=== PATIENT | female | born 1960 ===

== ENCOUNTER 2020-09-01 13:05 | Outpatient (CLI) | payer BC ==
--- NOTE | 2020-09-01 14:59 | Mammography Report ---
DIGITAL SCREENING MAMMOGRAM WITH CAD, 09/01/2020 CLINICAL INFORMATION / INDICATION: Routine screening mammography. TECHNIQUE: Digital bilateral 2D mammography was obtained in the craniocaudal and mediolateral obliqu e projections. This examination was interpreted with the benefit of Computer-Aided Detection analysis . COMPARISON: 04/06/2017, 01/05/2016 FINDINGS: Breast Density: The breasts are heterogeneously dense, which may obscure small masses. No dominant mass, suspicious calcifications, or architectural distortion in either breast. There are bilateral retropectoral silicone implants. There are a few moderately prominent left axillary lymph nodes, representing a new finding. IMPRESSION: 1. New moderately prominent left axillary lymph nodes which will require additional evaluation with u ltrasound and possible additional mammographic views. Follow up recommendation: Ultrasound BI-RADS Category 0: Incomplete. Needs additional imaging evaluation and/or prior mammograms for cameron rison. A "normal" or negative report should not discourage follow up or biopsy of a clinically significant f inding. A written summary of these findings will be mailed to the patient. The patient will be entered into a mammography reporting system which will generate a reminder letter for the patient's next appointmen t at the appropriate interval. [employer] recommends yearly mammograms starting at age 40 and continuing as l jennifer as a woman is in good health. Breast MRI is recommended for women with an approximate 20-25% or greater lifetime risk of breast cancer, including women with a strong family history of breast or ova capo cancer or who have been treated for Hodgkin's disease. Signer Name: Hazel Damian MD Signed: 09/01/2020 2:54 PM Workstation Name: [id number]
== END 2020-09-01 13:06 | disposition home or self-care (01) ==
LOC: SPVWC 13:05
PROVIDERS: ATTEND Surgery
DX: Z12.31 Encounter for screening mammogram for malignant neoplasm of breast (principal); N64.89 Other specified disorders of breast
CPT/HCPCS: 77067

== ENCOUNTER 2020-09-08 09:37 | Outpatient (CLI) | payer BC ==
--- NOTE | 2020-09-11 08:04 | Ultrasound Report ---
ULTRASOUND BREAST LEFT LIMITED, 09/08/2020 CLINICAL INFORMATION / INDICATION: Prominent left axillary lymph nodes on screening mammography. TECHNIQUE: Targeted ultrasound evaluation was performed of the area of interest. COMPARISON: Bilateral mammography 09/01/20. FINDINGS: There are multiple small benign-appearing left axillary lymph nodes. The largest lymph node measures less than 1 cm short axis. No cortical thickening is seen. The lymph nodes demonstrate normal echogen ic nirmala with normal hilar blood flow. IMPRESSION: Multiple benign-appearing left axillary lymph nodes are likely reactive and related to re cent COVID 19 vaccination in the left arm 3 days prior. Follow up recommendation: Routine yearly BI-RADS Category 2: Benign. A normal or "negative" report should not preclude biopsy or follow-up of a clinically suspicious find ing. Signer Name: Rocky Monroe MD Signed: 09/08/2020 11:04 AM Workstation Name: [email or web address]
== END 2020-09-08 09:38 | disposition home or self-care (01) ==
LOC: US 09:37 → MERGE 09:37 → US 09:38
PROVIDERS: ATTEND Surgery
DX: R92.8 Other abnormal and inconclusive findings on diagnostic imaging of breast (principal)